=== PATIENT | male | born 1990 | race African-American/Black ===

== ENCOUNTER → 2022-04-04 | Outpatient (CLI) | payer OTHER | LOC: COL.RAD 15:11 | DX: M54.50 Low back pain, unspecified (principal); R31.9 Hematuria, unspecified ==

== ENCOUNTER → 2023-05-29 | Outpatient (CLI) | payer OTHER | LOC: MHCPAIN 12:49 | DX: M51.26 Other intervertebral disc displacement, lumbar region (principal); M54.16 Radiculopathy, lumbar region | CPT/HCPCS: J1100; Q9967 ==

== ENCOUNTER → 2023-09-18 | Outpatient (CLI) | payer OTHER | LOC: MHCPAIN 07-31 12:03 | DX: M47.817 Spondylosis without myelopathy or radiculopathy, lumbosacral region (principal) | CPT/HCPCS: J0665 ==